=== PATIENT | male | born 1970 | race Caucasian/White ===

== ENCOUNTER 2018-10-23 08:48 | Day surgery (SDC) | payer OTHER ==
[~2018-10-23] VITALS: Ht 182.9 cm; Wt 99.8 kg
[2018-10-23] VITALS (11 sets, daily range): BP systolic 131–220; BP diastolic 50–102
[2018-10-23] MEDS ORDERED: ADDERALL 20 MG20 MG ORAL (09:38)
--- NOTE | 2018-10-23 10:23 | Pre-Procedure Note/Attestation ---
Pre-Procedure Note/Attestation Complete Prior to Procedure Planned Procedure: not applicable Procedure Narrative: egd/stent removal Indications for Procedure Pre-Operative Diagnosis: retain stent Attestation I attest that I discussed the nature of the procedure; its benefits; risks and complications; and alternatives (and the risks and benefits of such alternatives ), prior to the procedure, with the patient (or the patient's legal food service sales representatives). I attest that, if there was a reasonable possibility of needing a blood transfusion, the patient (or the patient's legal food service sales representatives) was given the [facility] standardized written summary, pursuant to the Emm[place] Blood Safety Act ([place] Health and Safety Code # 1645, as amended). I attest that I re-evaluated the patient just prior to the surgery and that there has been no change in the patient's H&P, except as documented below: Denys Green MD Oct 23, 2018 10:23
--- NOTE | 2018-10-23 10:25 | Short Stay Surgery H&P ---
History of Present Illness History of Present Illness Chief Complaint stent removal HPI Werner Abdi is a 48 year old male who was admitted on for Ulceration Of The Anastomosis Patient History Allergies: Coded Allergies: No Known Allergies (Unverified , 10/22/18) PAST MEDICAL HISTORY: (1) Obesity (2) Gastric bypass status for obesity (3) Anxiety Medication History Scheduled Amphet Asp/Amphet/D-Amphet* (Adderall 20 Mg Tablet*), 60 MG ORAL DAILY, ( Reported) Review of Systems Cardiovascular: Reports: no symptoms Respiratory: Reports: no symptoms Skeletal: Reports: no symptoms Gastrointestinal: Reports: no symptoms Genitourinary: Reports: no symptoms Neurologic: Reports: no symptoms Endocrine: Reports: no symptoms Hematologic: Reports: no symptoms Physical Exam Vital Signs Last Vital Signs Date Time Temp Pulse Resp B/P (MAP) Pulse Ox O2 Delivery O2 Flow Rate FiO2 10/23/18 09:34 Room Air 10/23/18 09:32 97.7 71 18 220/97 99 Skin: normal HENT: normal Heart: normal Lungs: normal Abdomen: normal Extremities: normal Plan Plan of Care egd Attestation Are the patient's medical conditions optimized for surgery? Attestation Response: yes Denys Green MD Oct 23, 2018 10:25
[2018-10-23] MEDS ORDERED: Lidocaine 1% MPF 10mg/ml 5ml ONE (11:00)
[2018-10-23] MEDS ORDERED: LR 1000ml ONE (11:00)
[2018-10-23] MEDS ORDERED: Propofol 200mg/20ml IV ONE (11:00)
--- NOTE | 2018-10-23 11:08 | Endoscopy Procedure Note ---
Endoscopy Procedure Note General Indication for Procedure: stent removal Procedures Performed: EGD Operative Findings/Diagnosis: gastritis Specimen: none Pt Tolerated Procedure Well: Yes Estimated Blood Loss: none Anesthesia Anesthesiologist: lily Anesthesia: MAC Inserted Devices Implant(s) used?: No GI Core Measures 50 yrs or older w/o bx or poly: Not Applicable 10yrs. F/U recommended: Not Applicable Denys Green MD Oct 23, 2018 11:08
--- NOTE | 2018-10-23 11:17 | Immediate Post-Op Evaluation ---
Immediate Post-Op Evalulation Immediate Post-Op Evalulation Procedure: EGD Date of Evaluation: Oct 23, 2018 Time of Evaluation: 11:16 IV Fluids: 500 Blood Products: 0 Blood Pressure Systolic: 131 Blood Pressure Diastolic: 89 Pulse Rate: 66 Respiratory Rate: 14 O2 Sat by Pulse Oximetry: 100 Temperature (Fahrenheit): 97.0 Pain Score (1-10): 0 Nausea: No Vomiting: No Complications none Patient Status: awake, reacts, patent Hydration Status: adequate Drug: none Apoorva Dunn CRNA Oct 23, 2018 11:17
--- NOTE | 2018-10-23 11:20 | Anethesia Preoperative Eval ---
Anesthesia Pre-op PMH/ROS General Date of Evaluation: Oct 23, 2018 Time of Evaluation: 10:45 Anesthesiologist: isabelle ASA Score: ASA 2 Mallampati Score Class I : Soft palate, uvula, fauces, pillars visible Class II: Soft palate, uvula, fauces visible Class III: Soft palate, base of uvula visible Class IV: Only hard plate visible Mallampati Classification: Class II Surgeon: luis e Diagnosis: stent removal Surgical Procedure: egd Anesthesia History: none Family History: no anesthesia problems Allergies: Coded Allergies: No Known Allergies (Unverified , 10/22/18) Medications: see eMAR Patient NPO?: Yes NPO Date: Oct 23, 2018 NPO Time: 00:01 Past Medical History Cardiovascular: Denies: HTN, CAD, NM, valve dz, arrhythmia, other Pulmonary: Denies: asthma, COPD, ROSMERY, other Gastrointestinal/Genitourinary: Denies: GERD, CRI, ESRD, other Neurologic/Psychiatric: Reports: depression/anxiety; Denies: dementia, CVA, TIA, other Endocrine: Denies: DM, hypothyroidism, steroids, other HEENT: Denies: cataract (L), cataract (R), glaucoma, SAMISH (L), SAMISH (R), other PSxH Narrative: history of gastric bypass Anesthesia Pre-op Phys. Exam Physician Exam Last Vital Signs Date Time Temp Pulse Resp B/P (MAP) Pulse Ox O2 Delivery O2 Flow Rate FiO2 10/23/18 09:34 Room Air 10/23/18 09:32 97.7 71 18 220/97 99 Constitutional: NAD Neurologic: CN 2-12 intact Cardiovascular: RRR Respiratory: CTA Gastrointestinal: S/NT/ND Airway Exam Mallampati Score: Class II MO: full ROM: full Dentures: no upper, no lower Anesthesia Pre-op A/P Studies Pre-op Studies: EKG - r Risk Assessment & Plan Assessment: nausea; anxious Plan: mac Pre-Antibiotics Drug: none Apoorva Dunn CRNA Oct 23, 2018 11:20
--- NOTE | 2018-10-23 13:57 | 48 Hour Post Anesthesia Eval ---
Post Anesthesia Evaluation Procedure: EGD Date of Evaluation: Oct 23, 2018 Time of Evaluation: 13:56 Blood Pressure Systolic: 159 0: 50 Pulse Rate: 79 Respiratory Rate: 14 O2 Sat by Pulse Oximetry: 98 Airway: patent Nausea: No Vomiting: No Hydration Status: adequate Cardiopulmonary Status: stable Mental Status/LOC: patient returned to baseline Post-Anesthesia Complications: none Follow-up care needed: N/A Apoorva Dunn CRNA Oct 23, 2018 13:57
--- NOTE | 2018-10-23 14:21 | Diagnostic Imaging Report ---
Indication: Suspected retained foreign body status post GI procedure Technique: Supine view of the abdomen Comparison: none Findings: Small bowel loops are diffusely gas filled, clips are normal in caliber. Considerable gas is seen in normal caliber colon. No radiopaque foreign body is demonstrated. Impression: No plain film evidence of retained radiopaque foreign body
--- NOTE | 2018-10-23 18:30 | Procedure Note ---
DATE OF PROCEDURE: 10/23/2018 SURGEON: Denys Green M.D. PROCEDURE: Upper endoscopy. ANESTHESIA: Per HORACIO Dunn. INSTRUMENT: Olympus adult flexible upper endoscope. INDICATION: History of gastric bypass complicated requires a stent placement, today is here for stent removal. REASON FOR PROCEDURE: The procedure, risks, benefits, and possible consequences, including hemorrhage, aspiration, perforation and infection, and alternative treatments, were explained to the patient/legal guardian by Dr. Denys Green and the patient/legal guardian understood and accepted these risks. PROCEDURE IN DETAIL: After informed consent was obtained and the patient was adequately sedated, Olympus upper endoscope was advanced from mouth into the esophagus and subsequently into gastric pouch. The anastomosis was mildly inflamed. There was no stent. Most likely the stent is already migrated. We passed the scope all the way down deep inside into small intestine looking for the stent and we could not see. There was some retained sutures at the anastomosis. Some inflammatory changes at the anastomosis, but the anastomosis site was pretty patent and camera was easily going through. At this time, the upper endoscope was retrieved and the procedure was terminated. SUMMARY OF FINDINGS: Most probably migrated anastomotic stent. Some post stent inflammatory changes at the anastomosis. RECOMMENDATIONS: We are going to order a stat KUB today to see if the stent already has passed through the GI tract or not. Denys Green M.D. DR: YUNIOR JOB#: [id number] CC:
== END 2018-10-23 12:45 | disposition home or self-care (01) ==
LOC: GAS 08:48
DX: K63.89 Other specified diseases of intestine (principal); Z98.84 Bariatric surgery status; F41.9 Anxiety disorder, unspecified; F32.9 Major depressive disorder, single episode, unspecified
CPT/HCPCS: 43235; 74018; J2405; J2704; 94003; 94150